=== PATIENT | male | born 1950 | race Caucasian/White ===

== ENCOUNTER 2022-09-26 23:04 | Emergency (ER) | payer OTHER ==
[~2022-09-26] VITALS: Ht 165.1 cm; Wt 66.2 kg
[2022-09-26 23:18] VITALS: BP 144/93
--- NOTE | 2022-09-26 23:25 | NUR ---
PT. WALKED TO BED 07.
--- NOTE | 2022-09-26 23:45 | NUR ---
72YR OLD MALE BIB SELF C/O UNABLE TO URINATE. PT STATES HE HAD A WATSON CATH X1.5 MONTHS WAS REMOVED AT A CLINIC . PT HAS ENLARGED PROSTATE. PT IS A&OX4 9/10 PRESSURE PAIN LOWER ABD PAIN /PRESSURE. PT IS UNABLE TO VOID. THAI SPEAKING ONLY NKDA ENLARGED PROSTATE HTN
--- NOTE | 2022-09-27 00:10 | NUR ---
WATSON CATH INSERTED 16FR. OUTPUT OF 500CC PT TOLERATED WELL. URINE SENT TO LAB
[2022-09-27 00:13] LABS: APPEARANCE,URINE CLEAR (CLEAR); BILIRUBIN,URINE NEGATIVE (NEGATIVE); BLOOD, URINE 3+ (NEGATIVE); COLOR,URINE YELLOW (YELLOW); LEUKOCYTE ESTERASE ,URINE TRACE (NEGATIVE); NITRITE, URINE NEGATIVE (NEGATIVE); PH,URINE 7.5 (5.0-9.0); UGLUCOSE NEGATIVE (NEGATIVE)
[2022-09-27 00:25] LABS: RBC,URINE 20-50 /HPF (0-5)
[2022-09-27 00:26] LABS: CALCIUM OXALATE CRYSTALS,UR 0-10 /HPF (None Seen); RED BLOOD CELL CASTS,URINE 0-10 /LPF (None Seen)
[2022-09-27] MEDS ORDERED: CEPH-588 PO (00:47)
== END 2022-09-27 01:03 | disposition home or self-care (01) ==
LOC: MED 23:04
DX: R33.9 Retention of urine, unspecified (principal); Z79.899 Other long term (current) drug therapy; Z98.890 Other specified postprocedural states
CPT/HCPCS: 51702; 81001; 99284

== ENCOUNTER 2022-10-27 08:50 | Emergency (ER) | payer OTHER ==
[~2022-10-27] VITALS: Ht 165.1 cm; Wt 65.8 kg
[~2022-10-27 08:50] MED LIST: CEPH-588 PO
[2022-10-27 09:03] VITALS: BP 139/70; PULSE 98; RESP 18; TEMP 98.4; O2SAT 99
--- NOTE | 2022-10-27 09:22 | NUR ---
72yo M C/O DECREASE URINE OUTPUT FROM CATHETER SINCE YESTERDAY. PT DENIES N,V,D,C, FEVER, CHILLS, FLU SYMPTOMS, CAMPBELL, ABD PAIN, SOB,CP, CONFUSION. PT STATES HE HAS BEEN DRINKING VETY LITTLE WATER. NAD NOTED, SAFETY MAINTAINED.
[2022-10-27] MEDS ORDERED: NACL 0.9% 1,000 ML IV ONE (10:10)
[2022-10-27 11:44] VITALS: BP 132/68; PULSE 72; RESP 15; TEMP 97.5; O2SAT 99
--- NOTE | 2022-10-27 11:44 | NUR ---
Patient discharged with v/s stable. Written and verbal after care instructions given and explained. Patient verbalized understanding. Ambulatory with steady gait. All questions addressed prior to discharge. Advised to follow up with PMD.
--- NOTE | 2022-10-27 13:54 | NUR ---
The patient's care was reviewed and supervised by ROBERT SHARMA RN.
== END 2022-10-27 13:54 | disposition home or self-care (01) ==
LOC: MED 08:50
DX: E86.0 Dehydration (principal); Z79.899 Other long term (current) drug therapy
CPT/HCPCS: 51702; 81002; 96360; 99284; J7030

== ENCOUNTER 2022-11-09 09:38 | Emergency (ER) | payer OTHER ==
[~2022-11-09] VITALS: Ht 165.1 cm; Wt 65.8 kg
[2022-11-09 09:43] VITALS: BP 159/110; PULSE 82; RESP 18; TEMP 97.1; O2SAT 98
--- NOTE | 2022-11-09 09:49 | NUR ---
MINIMAL OUTPUT TO FC DRAINAGE BAG SINCE YESTERDAY MORNING. PATIENT ENDORSING SUPRAPUBIC PAIN. CATHETER WAS PLACED HERE 10/27/22, HAS A UROLOGY APPOINTMENT ON 11/28/22. DENIES FEVERS. PMH: HTN, BPH, HIGH CHOLESTEROL MEDS: TAMSULOSIN, ATORVASTATIN, BENAZEPRIL
--- NOTE | 2022-11-09 09:54 | NUR ---
PATIENT PRESENTS TO ED WIT MINIMAL FC DRAINAGE SINCE YESTERDAY MORNING. PT STATES HE HAS SUPERPUIC PAIN. CATHETER WAS PLACED HERE ON 10/27/22 . PT STATES HE HAS A UROLOGY APPOINTMENT ON 11/18/22 . DENIES N/V/D; SKIN IS PINK/WARM/DRY; AAOX4 WITH EVEN AND STEADY GAIT; LUNGS CLEAR BL; HR EVEN AND REGULAR; PT DENIES ANY FEVER, CP, SOB, OR COUGH AT THIS TIME; PATIENT STATES PAIN OF 10/10 AT THIS TIME; VSS; PATIENT POSITIONED FOR COMFORT; HOB ELEVATED; BEDRAILS UP X2; BED DOWN. CALL LIGHT WITH IN REACH ER MD MADE AWARE OF PT STATUS. PMH: HTN, BPH, HIGH CHOLESTEROL MEDS: TAMSULOSIN, ATORVASTATIN, BENAZEPRIL
[2022-11-09 09:58] VITALS: O2SAT 98
[2022-11-09] MEDS ORDERED: NACL 0.9% 1,000 ML IV ONE ×2 (10:00→11:55)
--- NOTE | 2022-11-09 10:15 | NUR ---
AT BEDSIDE. PT HAS BEEN BLADDER SCANED BY SUDHIR. PT HAS IV FLUIDS INFUSING PER PROVIDERS ORDERS.
[2022-11-09 10:19] LABS: BASOPHILS % (AUTO) 0.3 % (0.0-2.0); EOSINOPHILS # (AUTO) 0.1 K/uL (0-0.4); EOSINOPHILS % (AUTO) 1.1 % (0.0-4.0); HEMATOCRIT 40.8 % (36-52); HEMOGLOBIN 13.7 g/dL (12.0-18.0); LYMPHOCYTES % (AUTO) 30.7 % (20.5-51.1); MEAN CORPUSCULAR HEMOGLOBIN 28 pg (27-31); MEAN CORPUSCULAR HGB CONC 33 g/dL (33-37); MEAN CORPUSCULAR VOLUME 84.7 fL (80-94); MONOCYTES # (AUTO) 0.4 K/uL (0.8-1.0); MONOCYTES % (AUTO) 5.6 % (1.7-9.3); NEUTROPHILS # (AUTO) 4.1 K/uL (1.8-7.7); NEUTROPHILS % (AUTO) 62.3 % (42.2-75.2); PLATELET COUNT (AUTO) 177 K/uL (140-450); RED BLOOD CELL COUNT(AUTO) 4.82 MIL/uL (4.20-6.10); RED CELL DISTRIBUTION WIDTH 13.5 % (11.6-13.7); WHITE BLOOD COUNT (AUTO) 6.6 K/uL (4.8-10.8)
[2022-11-09 10:29] LABS: ANION GAP 15.1 (8-16); CARBON DIOXIDE 25.4 mmol/L (21-32); CHLORIDE 102 mmol/L (98-107); GLUCOSE 137 mg/dL (74-106); POTASSIUM 3.5 mmol/L (3.5-5.1); SODIUM SERUM 139 mmol/L (136-145); UREA NITROGEN, BLOOD 23 mg/dL (7-18)
[2022-11-09 10:35] LABS: APPEARANCE,URINE CLEAR (CLEAR); BILIRUBIN,URINE 1+ (NEGATIVE); BLOOD, URINE NEGATIVE (NEGATIVE); COLOR,URINE YELLOW (YELLOW); LEUKOCYTE ESTERASE ,URINE TRACE (NEGATIVE); NITRITE, URINE NEGATIVE (NEGATIVE); PH,URINE >=9.0 (5.0-9.0); UGLUCOSE NEGATIVE (NEGATIVE)
[2022-11-09 10:50] LABS: RBC,URINE 0-5 /HPF (0-5)
[2022-11-09 10:51] LABS: TRIPLE PHOSPHATE CRYSTAL,UR 0-10 /HPF (None Seen)
--- NOTE | 2022-11-09 11:38 | NUR ---
PTS CATH HAS BEEN IRRIGATED PER PROVIDERS ORDERS. NO SIGNS OF HEMATURIA, PT HAD CLOUDY SETIMENT IN CATH LINE. 350 MLS OF NORMAL SALINE USED IN IRRIGATION.
--- NOTE | 2022-11-09 11:40 | NUR ---
PT STATES HES FEELING BETTER. LEG BAG HAS BEEN CHANGED.
[2022-11-09 12:55] VITALS: BP 150/75; PULSE 82; RESP 18; TEMP 97.2
[2022-11-09] MEDS ORDERED: CEPH500C16 PO (12:56)
[2022-11-09] MEDS ORDERED: oxyCODONE/APAP 5/325 MG 1 TAB TAB PO ONE (13:00)
--- NOTE | 2022-11-09 13:50 | NUR ---
PT WAS COMPLAING OF LEAKING AND PAIN. PT WAS MEDICATED PER PROVIDERS ORDERS AND CATH WAS CHANGED TO A 16 CH[place] LEG BAG. PT IS RESTING IN BED UNTIL PRESSENCE OF URINATION.
== END 2022-11-09 12:57 | disposition home or self-care (01) ==
LOC: MED 09:38
DX: T83.091A Other mechanical complication of indwelling urethral catheter, initial encounter (principal); I10 Essential (primary) hypertension; N40.0 Benign prostatic hyperplasia without lower urinary tract symptoms; Y84.6 Urinary catheterization as the cause of abnormal reaction of the patient, or of later complication, without mention of misadventure at the time of the procedure; Y92.89 Other specified places as the place of occurrence of the external cause
CPT/HCPCS: 36415; 51702; 80048; 81001; 85025; 87086; 96360; 96361; 99284; J7030

== ENCOUNTER 2022-12-08 07:46 | Emergency (ER) | payer OTHER ==
[~2022-12-08] VITALS: Ht 162.6 cm; Wt 65.8 kg
[~2022-12-08 07:46] MED LIST changes: +CEPH500C16 PO
[2022-12-08 08:05] VITALS: BP 149/70; PULSE 94; RESP 17; TEMP 97.4; O2SAT 98
[2022-12-08 08:45] VITALS: BP 137/69; PULSE 94; RESP 17; TEMP 97.4; O2SAT 98
[2022-12-08] MEDS ORDERED: NACL 0.9% 1,000 ML IV ONE (09:10)
[2022-12-08] MEDS ORDERED: CIPR500T4 PO (09:58)
[2022-12-08] MEDS ORDERED: LIDOCAINE 2% 100 MG/5 ML UJET TP ONE (10:44)
== END 2022-12-08 10:45 | disposition home or self-care (01) ==
LOC: MED 07:46
DX: N39.0 Urinary tract infection, site not specified (principal); R33.9 Retention of urine, unspecified; I10 Essential (primary) hypertension; Z79.899 Other long term (current) drug therapy; Z98.890 Other specified postprocedural states
CPT/HCPCS: 51702; 81002; 87086; 96360; 99284